=== PATIENT | male | born 1995 | race Caucasian/White ===

== ENCOUNTER 2021-05-01 19:44 | Emergency (ER) | payer OTHER, SELFPAY ==
--- NOTE | 2021-05-01 19:58 | DI.RAD.S_ITS ---
PROCEDURE: XR HAND RT MIN 3V INDICATIONS: hand injury with swelling and bruising present TECHNIQUE: 3 views of the hand acquired. COMPARISON: None. FINDINGS: Bones: Minimally displaced fracture of the 5th metacarpal shaft distally. Small lucency is seen at the radial base of the 2nd proximal phalanx that is nonspecific but could represent a chronic erosion. Questionable lucency at the ulnar aspect of the 4th proximal phalangeal head. Carpal bones are normally aligned. No suspicious bony lesions. Soft tissues: No suspicious soft tissue calcifications. IMPRESSION: Minimally displaced fracture of the 5th metacarpal shaft. Dictated by: Jere Jeong M.D. on 05/01/2021 at 20:15 Approved by: Jere Jeong M.D. on 05/01/2021 at 20:18
[2021-05-01 20:00] VITALS: BP 158/94; PULSE 87; RESP 16; TEMP 36.6; O2SAT 100; BMI 21.7
--- NOTE | 2021-05-01 20:26 | ED_ITS ---
HPI - General Adult General Chief complaint: Extremity Injury, Upper Stated complaint: Right hand injury today Time Seen by Provider: 05/01/21 20:14 Source: patient Mode of arrival: Ambulatory History of Present Illness HPI narrative: 26-year-old gentleman with type 1 diabetes, depression anxiety, chronic pain issues, and ADD, in a fit of anger earlier today punch the hardest thing he could finding comes in with pain in the right hand along the lateral aspect with some bruising on fullness. He is right-handed. He has no other significant complaints. Related Data Home Medications Medication Instructions Recorded Confirmed eszopiclone 3 mg tablet (Lunesta) 3 mg PO BEDTIME 04/02/20 09/09/20 fast acting inuslin SUBCUT 04/02/20 09/09/20 gabapentin 400 mg capsule 1,200 mg PO DAILY cap 04/02/20 09/09/20 insulin glargine 100 unit/mL (3 40 unit SUBCUT BID ml 04/02/20 09/09/20 mL) subcutaneous pen (Lantus Solostar U-100 Insulin) leflunomide 10 mg tablet 10 mg PO DAILY 04/02/20 09/09/20 meloxicam 7.5 mg tablet 7.5 mg PO DAILY 04/02/20 09/09/20 sulfasalazine 500 mg tablet 1 g PO BID 04/02/20 09/09/20 Previous Rx's Medication Instructions Recorded doxycycline hyclate 200 mg 200 mg PO DAILY #7 tab 04/21/20 tablet,delayed release lamotrigine 25 mg tablet 75 mg PO ONCE #270 tab 12/12/20 desvenlafaxine succinate 25 mg 50 mg PO DAILY #180 tab 03/08/21 tablet,extended release 24 hr methylphenidate HCl 10 mg tablet 10 mg PO BID PRN #60 tab 03/08/21 (Ritalin) cetirizine 10 mg tablet See Rx Instructions .ROUTE 03/29/21 .COMPLEX #30 tab Allergies Allergy/AdvReac Type Severity Reaction Status Date / Time amoxicillin Allergy Intermediate N/V/D Verified 07/16/20 11:43 Review of Systems Review of Systems Narrative: Pertinent positive and negative findings as per HPI Remainder of review of systems is otherwise unremarkable for Constitutional: Fevers, chills, weakness ENT: No sore throat, neck pain, ear pain CV: Chest pain, palpitations, Respiratory: Cough, wheeze, dyspnea GI: Nausea, vomiting, diarrhea, Patient History Medical History Ankle pain (~2009) Anxiety (~2018) Bacterial sinusitis Bilateral wrist pain Caffeine abuse, continuous Cervical somatic dysfunction Chronic low back pain Chronic neck pain Chronic pain of left upper extremity Chronic pain of right upper extremity Cranial somatic dysfunction Depression (~2018) Foot pain (~2009) Fractures Lumbar region somatic dysfunction Pelvic somatic dysfunction Rheumatoid arthritis (~2018) Sacral region somatic dysfunction Segmental and somatic dysfunction of abdomen and other regions Segmental and somatic dysfunction of rib cage Shoulder pain (~2018) Sinus headache Tension headache, chronic Thoracic region somatic dysfunction Type 1 diabetes mellitus Upper extremity somatic dysfunction Surgical History Anesthesia History of foot surgery History of fracture of leg (~2008) Family History Father Diabetes mellitus Sister Diabetes mellitus Sister Diabetes mellitus Grandfather Diabetes mellitus Grandmother Diabetes mellitus Social History Smoking Status: Former smoker Smokeless tobacco user: chewing tobacco alcohol intake: current (rarely) substance use type: former substance user Smoking Status: Former smoker alcohol intake frequency: a few times a month Substance Use Type: does not use Exam Initial Vital Signs Initial Vital Signs: Vital Signs Temperature 97.9 F 05/01/21 20:00 Pulse Rate 87 05/01/21 20:00 Respiratory Rate 16 05/01/21 20:00 Blood Pressure 158/94 H 05/01/21 20:00 Pulse Oximetry 100 05/01/21 20:00 General: Alert appropriate in no acute distress Respiratory: Able to speak in full sentences, no obvious respiratory distress Skin: No obvious rashes, warm and dry Neurologic: Grossly intact no obvious asymmetries or abnormalities Extremity: Right hand with some mild tenderness and slight swelling on the dorsum of the hand laterally. Neurovascularly intact Psych: appropriate insight and affect, cooperative Procedures Orthopedic Splinting/Casting Right hand: Time of procedure: 20:54 Side: right Upper Extremity Injury Location: hand Upper Extremity Immobilizer: ulnar gutter Post splinting neuro exam: intact Post splinting vascular exam: intact Placed by: Nursing Course Orders Ordered: ED Orders 05/01/21 19:58 XR hand RT min 3V Stat Vital Signs Vital signs: Vital Signs - 8 hr 05/01/21 20:00 Temperature 97.9 F Pulse Rate 87 Respiratory Rate 16 Blood Pressure 158/94 H Pulse Oximetry 100 Medical Decision Making Imaging Data XR hand: Radiologist's Impression: FINDINGS:? ? Bones:? Minimally displaced fracture of the 5th metacarpal shaft distally.? Small lucency is seen at the radial base of the 2nd proximal phalanx that is nonspecific but could represent a chronic erosion.? Questionable lucency at the ulnar aspect of the 4th proximal phalangeal head.? Carpal bones are normally aligned.? No suspicious bony lesions.? ? Soft tissues:? No suspicious soft tissue calcifications.? ? ? IMPRESSION:? Minimally displaced fracture of the 5th metacarpal shaft. ? ? Dictated by: Jere Jeong M.D. on 05/01/2021 at 20:15 ? ? MDM Narrative Medical decision making narrative: 26-year-old gentleman who punched a wall and has a boxer's fracture. No other significant injury. He is placed in a gutter ulnar splint. Discharged home with instructions follow-up with [facility]. Discharge Plan Departure Patient Disposition: Home Clinical Impression: Boxer's fracture Activity Restrictions/Additional Instructions: Thank you for coming in today You have hand fracture called a boxer's fracture You need to keep the splint on until you are seen in the orthopedic surgeon's office. You will need a cast. Please contact [facility] at observe schedule an appointment sometime this next week Using 400 mg of ibuprofen (2 [id number] pills) and 1 Tylenol every 6 hours can be very helpful in controlling pain. I wish you the best Prescriptions: No Action lamotrigine 25 mg tablet 75 mg PO ONCE Qty: 270 1RF desvenlafaxine succinate 25 mg tablet extended release 24 hr 50 mg PO DAILY Qty: 180 3RF methylphenidate HCl [Ritalin] 10 mg tablet 10 mg PO BID PRN (Reason: attention deficit) Qty: 60 0RF cetirizine 10 mg tablet See Rx Instructions .ROUTE .COMPLEX Qty: 30 3RF Dose Instruction: TAKE 1 TABLET BY MOUTH DAILY NEEDED FOR ALLERGY SYMPTOMS Rx Instructions: TAKE 1 TABLET BY MOUTH DAILY NEEDED FOR ALLERGY SYMPTOMS doxycycline hyclate 200 mg tablet,delayed release (DR/EC) 200 mg PO DAILY Qty: 7 0RF meloxicam 7.5 mg tablet 7.5 mg PO DAILY 0RF gabapentin 400 mg capsule 1,200 mg PO DAILY 0RF Rx Instructions: 800mg AM and 400mg pm sulfasalazine 500 mg tablet 1 g PO BID 0RF Rx Instructions: give with food (meal/snack) leflunomide 10 mg tablet 10 mg PO DAILY 0RF eszopiclone [Lunesta] 3 mg tablet 3 mg PO BEDTIME 0RF Lantus Solostar U-100 Insulin 100 unit/mL (3 mL) insulin pen 40 unit SUBCUT BID 0RF fast acting inuslin SUBCUT 0RF Rx Instructions: sliding scale Referrals: Wilfrid Castillo DO [Primary Care Provider] -
== END 2021-05-01 21:27 | disposition home or self-care (01) ==
PROVIDERS: Emergency Provider Emergency Medicine; PCP Family Medicine
DX: S62.326A Displaced fracture of shaft of fifth metacarpal bone, right hand, initial encounter for closed fracture (principal); W22.8XXA Striking against or struck by other objects, initial encounter; F17.220 Nicotine dependence, chewing tobacco, uncomplicated
CPT/HCPCS: 29125; 73130; 99282; 99283